=== PATIENT | female | born 1985 | race African-American/Black ===

== ENCOUNTER 2016-03-15 23:12 | Emergency (ER) | payer MEDICAID, OTHER ==
[~2016-03-15] VITALS: Ht 162.6 cm; Wt 87.1 kg
[~2016-03-15 23:12] MED LIST: AMOXICILLIN500 MG ORAL; BENTYL10 MG ORAL; CLOTRIMAZOLE15 GM TOPIC; IBUPROFEN600 MG ORAL; LACTULOSE20 GM/301 ORAL; NKM; NORCO 5-325 TA1 EACH ORAL; PREDNISONE20 MG ORAL; VICODIN 5-5001 EACH ORAL
[2016-03-15 23:30] VITALS: BP 113/69
[2016-03-15] MEDS ORDERED: Ketorolac 30mg Inj IV ONE (23:45)
[2016-03-16] LABS: BASOPHILS % (AUTO) 0.6 % (0.0-2.0); EOSINOPHILS % (AUTO) 1.7 % (0.0-3.0); LYMPHOCYTES % (AUTO) 22.1 % (20.0-45.0); MEAN CORPUSCULAR HEMOGLOBIN 24.7 PG (27.0-31.0); MEAN CORPUSCULAR HGB CONC 32.2 G/DL (32.0-36.0); MEAN CORPUSCULAR VOLUME 77 FL (80-99); MONOCYTES % (AUTO) 4.2 % (1.0-10.0); NEUTROPHILS % (AUTO) 71.4 % (45.0-75.0); PLATELET COUNT 344 K/UL (150-450); RED BLOOD COUNT 4.53 M/UL (4.20-5.40); RED CELL DISTRIBUTION WIDTH 16.2 % (11.6-14.8); WHITE BLOOD COUNT 7.1 K/UL (4.8-10.8)
[2016-03-16 00:02] LABS: APPEARANCE,URINE CLEAR; KETONES,URINE 1+ (NEGATIVE); LEUKOCYTE ESTERASE ,URINE 2+ (NEGATIVE); NITRITE,URINE POSITIVE (NEGATIVE); PH,URINE 6.5 (4.5-8.0); PROTEIN,URINE NEGATIVE (NEGATIVE); UROBILINOGEN,URINE NORMAL MG/DL (0.0-1.0)
[2016-03-16 00:13] LABS: BACTERIA,URINE MANY /HPF; RBC,URINE 0-2 /HPF (0 - 2); SQUAMOUS EPITHELIAL CELL,UR MANY /LPF (NONE/OCC); WBC,URINE 15-20 /HPF (0 - 2)
[2016-03-16 00:14] LABS: ALANINE AMINOTRANSFERASE 10 U/L (3-33); ALBUMIN/GLOBULIN RATIO 1.1 (1.0-2.7); ANION GAP 14 (5-15); ASPARTATE AMINO TRANSFERASE 17 U/L (5-40); CALCIUM 9.2 mg/dL (8.6-10.2); CARBON DIOXIDE 27 mEQ/L (20-30); CHLORIDE 97 mEQ/L (98-107); CREATININE 0.7 mg/dL (0.5-0.9); GLOMERULAR FILTRATION RATE > 60 mL/min (>60); HEMOLYSIS 17; LIPASE 15 U/L (< 60); POTASSIUM 3.9 mEQ/L (3.4-4.9); SODIUM 138 mEQ/L (135-145); TOTAL PROTEIN 7.3 g/dL (6.6-8.7)
[2016-03-16] MEDS ORDERED: cefTRIAXone 1 GM in NS 55 ML IVPB ONE (00:45)
[2016-03-16 01:30] VITALS: BP 112/68
[2016-03-16] MEDS ORDERED: HYDROCODON-ACE1 EA15 ORAL (01:53)
[2016-03-16] MEDS ORDERED: KEFLEX500 MG ORAL (01:53)
--- NOTE | 2016-03-16 01:53 | Emergency Room Report ---
History of Present Illness General Chief Complaint: Abdominal Pain Source: Patient Present Illness HPI Is a 30-year-old female with no significant past medical history. She does have a history of depression. She just had 2 teeth extracted yesterday. She was placed on Tylenol with Codeine and amoxicillin. After taking both medicine this morning she had some stomach upset and vomiting. Complaining of diffuse pain and burning sensation. Pain is 7/10. Nothing made it better. Nothing made it worse. Denies any dysuria frequency. Denies any hematuria. Allergies: Coded Allergies: No Known Allergies (Unverified , 04/15/12) Patient History Past Medical History: see triage record, old chart reviewed Past Surgical History: other Pertinent Family History: none Social History: Denies: smoking Last Menstrual Period: Mar Now: No Immunizations: other Reviewed Nursing Documentation: PMH: Agreed, PSxH: Agreed Nursing Documentation-PMH Hx Gastrointestinal Problems: Yes - gallstones Review of Systems Eye: Denies: blurred vision, eye pain ENT: Denies: ear pain, nose congestion, throat swelling Respiratory: Denies: cough, shortness of breath Cardiovascular: Denies: chest pain, palpitations Gastrointestinal: Reports: abdominal pain, nausea, vomiting, Denies: diarrhea Musculoskeletal: Denies: back pain, joint pain Skin: Denies: rash Neurological: Denies: headache, numbness Endocrine: Denies: increased thirst, increased urine Hematologic/Lymphatic: Denies: easy bruising All Other Systems: negative except mentioned in HPI Physical Exam Vital Signs Date Time Temp Pulse Resp B/P Pulse Ox O2 Delivery O2 Flow Rate FiO2 03/15/16 23:15 98.8 82 16 126/83 96 Room Air vitals normal Sp02 EP Interpretation: reviewed, normal General Appearance: well appearing, no apparent distress, alert Head: normocephalic, atraumatic Eyes: bilateral eye EOMI, bilateral eye PERRL ENT: hearing grossly normal, normal pharynx Neck: full range of motion, supple, no meningismus Respiratory: chest non-tender, lungs clear, normal breath sounds Cardiovascular #1: regular rate, rhythm, no murmur Gastrointestinal: normal bowel sounds, no mass, no organomegaly, no bruit, non- distended, tenderness - Diffusely Musculoskeletal: back normal, gait/station normal, normal range of motion Psychiatric: mood/affect normal Skin: warm/dry Medical Decision Making Diagnostic Impression: Primary Impression: Abdominal pain Qualified Codes: R10.84 - Generalized abdominal pain Additional Impressions: Medication adverse effect Qualified Codes: T88.7XXA - Unspecified adverse effect of drug or medicament, initial encounter UTI (urinary tract infection) Qualified Codes: N30.00 - Acute cystitis without hematuria ER Course Patient with abdominal pain and vomiting. Labs unremarkable. He scan negative. She may have a urinary tract infection. Antibiotics given here. We' ll discharge home. Lab Results Impression is negative CT/MRI/US Diagnostic Results CT/MRI/US Diagnostic Results : Imaging Test Ordered: CT abdomen and pelvis Impression negative per radiologist Last Vital Signs Date Time Temp Pulse Resp B/P Pulse Ox O2 Delivery O2 Flow Rate FiO2 03/15/16 23:15 98.8 82 16 126/83 96 Room Air Status: improved Disposition: HOME, SELF-CARE Condition: Stable Scripts Cephalexin* (KEFLEX*) 500 Mg Capsule 500 MG ORAL TID, #21 CAP 0 Refills Prov: PRIMO CAMACHO M.D. 03/16/16 Hydrocodone/Acetaminophen 5-325* (HYDROCODONE/ACETAMINOPHEN 5-325*) 1 Each Tablet 1 TAB ORAL Q6H Y for For Pain, #20 TAB 0 Refills Prov: PRIMO CAMACHO M.D. 03/16/16 Referrals: [facility],REFERRING (PCP) Patient Instructions: Abdominal Pain, Adult Additional Instructions: Stop the Tylenol No. 3 [address] amoxicillin. Followup your Dr. in 2-3 days. Return if symptom worsen. PRIMO CAMACHO M.D. Mar 16, 2016 01:53
[2016-03-16 02:21] VITALS: BP 112/68
[2016-03-16 03:05] VITALS: BP 112/68
--- NOTE | 2016-03-16 09:38 | Diagnostic Imaging Report ---
Clinical Indication: Abdominal pain Technique: No oral contrast utilized, per emergency room physician request IV administration nonionic contrast. Venous phase spiral acquisition obtained through the abdomen and pelvis. Multiplanar reconstructions were generated. Total dose length product 1031 mGycm. CTDIvol(s) 19 mGy Comparison: 07/24/2015 Findings: Normal appendix. Moderate retained stool. No evidence of diverticulosis or diverticulitis. No small bowel distention. There is trace free cul-de-sac fluid. No free or loculated intraperitoneal air or fluid is demonstrated otherwise. Distal esophagus, stomach, duodenum are unremarkable. The gallbladder contains gallstones. Liver demonstrates focal fatty change in the usual location adjacent to the falciform ligament. No biliary ductal dilatation. The pancreas, spleen, adrenals, kidneys are unremarkable. No retroperitoneal or mesenteric mass or adenopathy. There is a tampon present within the vagina. The uterus and adnexal structures are unremarkable. Previously demonstrated small right ovarian cyst is no longer evident. No pelvic mass or adenopathy. Numerous nodules are seen in the bilateral buttock subcutaneous fat. These appear less conspicuous than on the prior study. Impression: Cholelithiasis No acute process Nodules and stranding of the bilateral buttock subcutaneous fat. Correlate with any history of prior injections. Trace free cul-de-sac fluid, presumed physiologic This agrees with the preliminary interpretation provided overnight by [facility] teleradiology service. The CT scanner at [facility] is accredited by the [employer] and the scans are performed using protocols designed to limit radiation exposure to as low as reasonably achievable to attain images of sufficient resolution adequate for diagnostic evaluation.
== END 2016-03-16 02:00 | disposition home or self-care (01) ==
LOC: EMR 23:39
DX: R10.84 Generalized abdominal pain (principal); T88.7XXA Unspecified adverse effect of drug or medicament, initial encounter; X58.XXXA Exposure to other specified factors, initial encounter; Y93.9 Activity, unspecified; Y92.9 Unspecified place or not applicable; N30.00 Acute cystitis without hematuria; R11.2 Nausea with vomiting, unspecified; Z86.59 Personal history of other mental and behavioral disorders
CPT/HCPCS: 36415; 74177; 80053; 81003; 81025; 83690; 85025; 87086; 87181; 96374; 96375; 99284; J0696; J1885; J2405; Q9967

== ENCOUNTER 2016-04-24 08:31 | Emergency (ER) | payer OTHER ==
[~2016-04-24] VITALS: Ht 162.6 cm; Wt 86.6 kg
[~2016-04-24 08:31] MED LIST changes: +HYDROCODON-ACE1 EA15 ORAL; +KEFLEX500 MG ORAL
[2016-04-24] MEDS ORDERED: Morphine Sulfate 4mg/ml Inj IVP ONE (09:00)
[2016-04-24 09:37] LABS: BASOPHILS % (AUTO) 2.4 % (0.0-2.0); LYMPHOCYTES % (AUTO) 14.4 % (20.0-45.0); MEAN CORPUSCULAR HEMOGLOBIN 24.2 PG (27.0-31.0); MEAN CORPUSCULAR HGB CONC 31.5 G/DL (32.0-36.0); MEAN CORPUSCULAR VOLUME 77 FL (80-99); MONOCYTES % (AUTO) 6.6 % (1.0-10.0); NEUTROPHILS % (AUTO) 74.7 % (45.0-75.0); PLATELET COUNT 278 K/UL (150-450); RED BLOOD COUNT 4.77 M/UL (4.20-5.40); RED CELL DISTRIBUTION WIDTH 16.2 % (11.6-14.8); WHITE BLOOD COUNT 6.8 K/UL (4.8-10.8)
[2016-04-24 09:40] LABS: APPEARANCE,URINE CLEAR; KETONES,URINE NEGATIVE (NEGATIVE); LEUKOCYTE ESTERASE ,URINE NEGATIVE (NEGATIVE); NITRITE,URINE NEGATIVE (NEGATIVE); PH,URINE 6 (4.5-8.0); PROTEIN,URINE NEGATIVE (NEGATIVE); UROBILINOGEN,URINE NORMAL MG/DL (0.0-1.0)
--- NOTE | 2016-04-24 09:45 | Diagnostic Imaging Report ---
Indication: SOB, this may Technique: One view of the chest Comparison: On 01/24/13 Findings: Lungs and pleural spaces are clear. Heart size is normal . No significant change Impression: No acute process
[2016-04-24 09:48] LABS: ALANINE AMINOTRANSFERASE 8 U/L (3-33); ANION GAP 13 (5-15); ASPARTATE AMINO TRANSFERASE 14 U/L (5-40); CALCIUM 8.9 mg/dL (8.6-10.2); CARBON DIOXIDE 25 mEQ/L (20-30); CHLORIDE 100 mEQ/L (98-107); CREATININE 0.7 mg/dL (0.5-0.9); GLOMERULAR FILTRATION RATE > 60 mL/min (>60); HEMOLYSIS 2; LIPASE 19 U/L (< 60); POTASSIUM 3.8 mEQ/L (3.4-4.9); SODIUM 138 mEQ/L (135-145); TOTAL PROTEIN 6.8 g/dL (6.6-8.7)
[2016-04-24 09:58] LABS: TROPONIN I < 0.30 ng/mL (<=0.30)
[2016-04-24 10:26] VITALS: BP 98/62
[2016-04-24 11:37] VITALS: BP 104/53
[2016-04-24 12:19] VITALS: BP 106/64
--- NOTE | 2016-04-24 12:27 | Diagnostic Imaging Report ---
Indication: Epigastric pain, abnormal renal function tests Technique: Crawford-scale and duplex images of the upper abdomen were obtained Comparison: 03/15/2016 CT scan Findings: . Gallbladder demonstrates gallstones. Sonographic Wright's sign could not be assessed as patient recently had pain medication. Common bile duct measures 4 mm in diameter. No intrahepatic biliary ductal dilatation. Liver demonstrate an ill-defined questionable focus of increased echogenicity in the anterior left hepatic lobe. This corresponds to an area of low attenuation described on prior CT scan, and most likely represents an area of focal fatty infiltration. Portal vein and hepatic veins are patent.. Pancreas is unremarkable. Spleen is unremarkable. Left kidney measures 9.5 cm in length. Right kidney measures 9.9 cm length. Both kidneys demonstrate normal echogenicity. There is no hydronephrosis. No focal abnormality. . Non-aneurysmal abdominal aorta. No free intraperitoneal fluid Impression: Cholelithiasis, also previously described Echogenic area within the liver, appearance on prior CT scan is consistent with area of focal fatty infiltration, location typical Negative for dilated ducts or other significant abnormality
[2016-04-24 12:56] VITALS: BP 97/62
[2016-04-24] MEDS ORDERED: BENTYL10 MG ORAL (13:34)
[2016-04-24] MEDS ORDERED: PEPCID20 MG ORAL (13:34)
[2016-04-24 13:50] VITALS: BP_SYST 114; BP_SYST 97; BP_DIAS 62; BP_DIAS 80
--- NOTE | 2016-04-25 11:25 | Cardiology Report ---
APPROVED REPORT EKG Measurement Heart [id number] Sinus bradycardia with premature atrial complexes Cannot rule out Anterior infarct, age undetermined Abnormal ECG t wave uinversion cannot exclude ischemia
--- NOTE | 2016-04-27 08:13 | Emergency Room Report ---
History of Present Illness General Chief Complaint: Pain Source: Patient Present Illness HPI Patient is a 30-year-old female brought in by family member after increased epigastric pain and low back pain. At the gradual onset of symptoms. Patient was noted to have increased nausea as well as mid epigastric pain. Patient prior history of gallstones. Patient reported having no fever. She had intermittent pain. Pain was worse with food. Patient had pain onset several hours prior to arrival. Allergies: Coded Allergies: No Known Allergies (Unverified , 04/15/12) Patient History Last Menstrual Period: 3-6 Now: No Reviewed Nursing Documentation: PMH: Agreed, PSxH: Agreed Nursing Documentation-PMH Past Medical History: No History, Except For Hx Gastrointestinal Problems: Yes - gallstones Review of Systems All Other Systems: negative except mentioned in HPI Physical Exam Vital Signs Date Time Temp Pulse Resp B/P Pulse Ox O2 Delivery O2 Flow Rate FiO2 04/24/16 08:41 98.4 71 18 101/62 98 Room Air Sp02 EP Interpretation: reviewed, normal General Appearance: normal inspection, well appearing, no apparent distress, alert, GCS 15 Head: atraumatic ENT: normal ENT inspection, hearing grossly normal, normal voice Neck: normal inspection, full range of motion, supple, no bony tend Respiratory: normal inspection, lungs clear, normal breath sounds, no respiratory distress, no retraction, no wheezing Cardiovascular #1: regular rate, rhythm, no edema Gastrointestinal: normal inspection, normal bowel sounds, non tender, soft, no guarding, no hernia Genitourinary: no CVA tenderness Musculoskeletal: normal inspection, back normal, normal range of motion Neurologic: normal inspection, alert, oriented x3, responsive, high school [employer] III-XII nml as tested, speech normal Psychiatric: normal inspection, judgement/insight normal, mood/affect normal Skin: normal inspection, normal color, no rash Medical Decision Making Diagnostic Impression: Primary Impression: Biliary colic ER Course Patient presented for abdominal pain. Differential diagnoses included ischemic bowel, appendicitis, perforated viscus, abdominal aortic aneurysm, inferior myocardial infarction, viral gastroenteritis Because of complexity of patient's case laboratory testing and imaging studies were ordered. Abdominal ultrasound radiology showed multiple gallbladder stones without evident gallbladder thickening.The patient was noted to have improvement after pain medications. Patient was advised to seek outpatient general surgery appointment. Patient is advised to return or she began having persistent vomiting increased pain high fevers or other concerns. Labs Test 04/24/16 09:10 White Blood Count 6.8 K/UL (4.8-10.8) Red Blood Count 4.77 M/UL (4.20-5.40) Hemoglobin 11.6 G/DL (12.0-16.0) Hematocrit 36.7 % (37.0-47.0) Mean Corpuscular Volume 77 FL (80-99) Mean Corpuscular Hemoglobin 24.2 PG (27.0-31.0) Mean Corpuscular Hemoglobin Concent 31.5 G/DL (32.0-36.0) Red Cell Distribution Width 16.2 % (11.6-14.8) Platelet Count 278 K/UL (150-450) Mean Platelet Volume 8.0 FL (6.5-10.1) Neutrophils (%) (Auto) 74.7 % (45.0-75.0) Lymphocytes (%) (Auto) 14.4 % (20.0-45.0) Monocytes (%) (Auto) 6.6 % (1.0-10.0) Eosinophils (%) (Auto) 2.0 % (0.0-3.0) Basophils (%) (Auto) 2.4 % (0.0-2.0) Urine Color Pale yellow Urine Appearance Clear Urine pH 6 (4.5-8.0) Urine Specific [place] 1.010 (1.005-1.035) Urine Protein Negative (NEGATIVE) Urine Glucose (UA) Negative (NEGATIVE) Urine Ketones Negative (NEGATIVE) Urine Occult Blood Negative (NEGATIVE) Urine Nitrite Negative (NEGATIVE) Urine Bilirubin Negative (NEGATIVE) Urine Urobilinogen Normal MG/DL (0.0-1.0) Urine Leukocyte Esterase Negative (NEGATIVE) Urine HCG, Qualitative Negative Sodium Level 138 mEQ/L (135-145) Potassium Level 3.8 mEQ/L (3.4-4.9) Chloride Level 100 mEQ/L (98-107) Carbon Dioxide Level 25 mEQ/L (20-30) Anion Gap 13 (5-15) Blood Urea Nitrogen 6 mg/dL (7-23) Creatinine 0.7 mg/dL (0.5-0.9) Estimat Glomerular Filtration Rate > 60 mL/min (>60) Glucose Level 94 mg/dL (74-106) Calcium Level 8.9 mg/dL (8.6-10.2) Total Bilirubin < 0.2 mg/dL (0.0-1.2) Aspartate Amino Transf (AST/SGOT) 14 U/L (5-40) Alanine Aminotransferase (ALT/SGPT) 8 U/L (3-33) Alkaline Phosphatase 70 U/L (35-104) Troponin I < 0.30 ng/mL (<=0.30) Total Protein 6.8 g/dL (6.6-8.7) Albumin 3.4 g/dL (3.5-5.2) Globulin 3.4 g/dL Albumin/Globulin Ratio 1.0 (1.0-2.7) Lipase 19 U/L (< 60) EKG Diagnostic Results Rate: normal Rhythm: NSR ST Segments: no acute changes Rhythm Strip Diag. Results EP Interpretation: yes Rhythm: NSR, no PVC's, no ectopy Last Vital Signs Date Time Temp Pulse Resp B/P Pulse Ox O2 Delivery O2 Flow Rate FiO2 04/24/16 13:50 98.5 71 12 97/62 100 Room Air Status: improved Disposition: HOME, SELF-CARE Condition: Stable Scripts Famotidine (PEPCID) 20 Mg Tablet 20 MG ORAL BEDTIME, #7 TAB 0 Refills Prov: Gene Welch 04/24/16 Dicyclomine Hcl* (BENTYL*) 10 Mg Capsule 10 MG ORAL FOUR TIMES A DAY, #20 CAP Prov: Gene Welch 04/24/16 Patient Instructions: Biliary Colic Gene Welch Apr 27, 2016 08:13
== END 2016-04-24 13:50 | disposition home or self-care (01) ==
LOC: EMR 08:54
DX: K80.50 Calculus of bile duct without cholangitis or cholecystitis without obstruction (principal); M54.5 Low back pain; R11.0 Nausea
CPT/HCPCS: 36415; 71010; 76700; 80053; 81003; 81025; 83690; 84484; 85025; 93005; 96360; 96361; 96374; 96375; 99284; J2270; J2405

== ENCOUNTER 2017-03-07 14:43 | Emergency (ER) | payer OTHER ==
[~2017-03-07] VITALS: Ht 162.6 cm; Wt 85.7 kg
[~2017-03-07 14:43] MED LIST changes: +PEPCID20 MG ORAL
[2017-03-07] MEDS ORDERED: Sodium Chloride 500ML 500 ML IV ONE (15:00)
[2017-03-07] MEDS ORDERED: Ketorolac 30mg Inj IV ONE (15:00)
[2017-03-07 15:20] VITALS: BP 110/76
[2017-03-07 15:39] LABS: APPEARANCE,URINE CLEAR; BILIRUBIN, URINE NEGATIVE (NEGATIVE); COLOR,URINE PALE YELLOW; GLUCOSE, URINE (UA) NEGATIVE (NEGATIVE); KETONES,URINE NEGATIVE (NEGATIVE); LEUKOCYTE ESTERASE ,URINE NEGATIVE (NEGATIVE); NITRITE,URINE NEGATIVE (NEGATIVE); PH,URINE 7 (4.5-8.0); PROTEIN,URINE NEGATIVE (NEGATIVE); UROBILINOGEN,URINE NORMAL MG/DL (0.0-1.0)
[2017-03-07] MEDS ORDERED: Excedrin Migraine tab ORAL ONE (16:45)
--- NOTE | 2017-03-07 16:58 | Emergency Room Report ---
History of Present Illness General Chief Complaint: Headache Source: Patient Present Illness HPI 31-year-old female presents to the emergency department complaining of 10 out of 10 in severity right-sided pulsatile headache that was progressive in nature and intermittent x3 weeks. Patient reports she is has a history of migraines and as noted increase in frequency over the course of the last 3 weeks. Patient denies changes in character of today's headache compared with previously experienced migraines however patient reports that her usual home remedies are not working. Patient reports that she has increased her fluid intake and tried multiple medications such as Aleve, and Motrin. Denies return of the headache same time daily, lacrimation or rhinorrhea associated with the headache. . She denies neck pain/stiffness, fevers, chills, nausea or vomiting, dysuria, hematuria or frequency. Patient denies photophobia or auditory symptoms. Patient denies recent head trauma or fall. She reports also over the course of the last week she has noted tightness and pain in the muscles between her shoulder blades that is exacerbated when she moves. Denies mid line neck pain. Denies numbness tingling or loss of sensation or gross motor movements of the extremities, incontinence of bowel or bladder. Denies CP, Palpitations, LOC, AMS, dizziness, Changes in Vision, Sensation, paresthesias, or a sudden severe headache. Allergies: Coded Allergies: No Known Allergies (Unverified , 04/15/12) Patient History Past Medical History: see triage record Past Surgical History: none Pertinent Family History: none Last Menstrual Period: now Now: No Reviewed Nursing Documentation: PMH: Agreed, PSxH: Agreed Nursing Documentation-PMH Past Medical History: No History, Except For Hx Gastrointestinal Problems: Yes - gallstones Review of Systems All Other Systems: negative except mentioned in HPI Physical Exam Vital Signs Date Time Temp Pulse Resp B/P (MAP) Pulse Ox O2 Delivery O2 Flow Rate FiO2 03/07/17 14:47 98.4 75 18 107/78 98 Room Air Sp02 EP Interpretation: reviewed, normal General Appearance: well appearing, alert, GCS 15, non-toxic, mild distress Head: normocephalic, atraumatic Eyes: bilateral eye normal inspection, bilateral eye PERRL, bilateral eye other - no photophobia ENT: hearing grossly normal, normal voice Neck: full range of motion, no meningismus, no bony tend Respiratory: lungs clear, normal breath sounds, speaking full sentences Cardiovascular #1: regular rate, rhythm Musculoskeletal: back normal, gait/station normal, normal range of motion, tender - mild TTP to paraspinal muscles of the thoracic spine mainly on the left side, no midline spinal TTP. Neurologic: alert, oriented x3, responsive, motor strength/tone normal, sensory intact, normal gait, speech normal, no pronator, grossly normal Psychiatric: judgement/insight normal Skin: normal color, no rash, warm/dry, well hydrated Medical Decision Making PA Attestation Dr. Wolff is my supervising Physician whom patient management has been discussed with. Diagnostic Impression: Primary Impression: Headache Qualified Codes: R51 - Headache Additional Impression: Upper back pain ER Course 31-year-old female presents to the emergency department complaining of 10 out of 10 in severity right-sided pulsatile headache that was progressive in nature and intermittent x3 weeks. Patient reports she is has a history of migraines and as noted increase in frequency over the course of the last 3 weeks. Patient denies changes in character of today's headache compared with previously experienced migraines however patient reports that her usual home remedies are not working. Patient reports that she has increased her fluid intake and tried multiple medications such as Aleve, and Motrin. Denies return of the headache same time daily, lacrimation or rhinorrhea associated with the headache. . She denies neck pain/stiffness, fevers, chills, nausea or vomiting, dysuria, hematuria or frequency. Patient denies photophobia or auditory symptoms. Patient denies recent head trauma or fall. She reports also over the course of the last week she has noted tightness and pain in the muscles between her shoulder blades that is exacerbated when she moves. Denies mid line neck pain. Denies numbness tingling or loss of sensation or gross motor movements of the extremities, incontinence of bowel or bladder. Denies CP, Palpitations, LOC, AMS, dizziness, Changes in Vision, Sensation, paresthesias, or a sudden severe headache. Ddx considered but are not limited to migraine, SAH, Psedudo motor Cerebri, Mass lesion, Cluster LAMAR, Tension LAMAR, Post lumbar puncture LAMAR. Vital signs: are WNL, pt. is afebrile H&PE are most consistent with increased headache frequency ORDERS: -UA: Unremarkable -Urine Hcg: negative. ED INTERVENTIONS: - 1 Liter NS - Compazine IV -Toradol IV - Excedrin Migraine PO -Discussed with patient that she needs to followup with her primary care provider/neurologist regarding increased frequency of headaches. DISCHARGE: At this time pt. is stable for d/c to home. Will provide printed patient care instructions, and any necessary prescriptions. Care plan and follow up instructions have been discussed with the patient prior to discharge. Labs Test 03/07/17 14:51 Urine Color Pale yellow Urine Appearance Clear Urine pH 7 (4.5-8.0) Urine Specific [place] 1.010 (1.005-1.035) Urine Protein Negative (NEGATIVE) Urine Glucose (UA) Negative (NEGATIVE) Urine Ketones Negative (NEGATIVE) Urine Occult Blood 2+ (NEGATIVE) Urine Nitrite Negative (NEGATIVE) Urine Bilirubin Negative (NEGATIVE) Urine Urobilinogen Normal MG/DL (0.0-1.0) Urine Leukocyte Esterase Negative (NEGATIVE) Urine RBC 2-4 /HPF (0 - 2) Urine WBC 0-2 /HPF (0 - 2) Urine Squamous Epithelial Cells Few /LPF (NONE/OCC) Urine Bacteria Few /HPF (NONE) Urine HCG, Qualitative Negative Last Vital Signs Date Time Temp Pulse Resp B/P (MAP) Pulse Ox O2 Delivery O2 Flow Rate FiO2 03/07/17 15:20 94 18 110/76 100 Room Air 03/07/17 14:47 98.4 Disposition: HOME, SELF-CARE Condition: Stable Scripts Methocarbamol* (ROBAXIN-750*) 750 Mg Tablet 750 MG PO QID for 7 Days, #28 TAB 0 Refills Prov: Jerilyn Maldonado 03/07/17 Aspirin/Acetaminophen/Caffeine (EXCEDRIN MIGRAINE GELTAB) 1 Each Tablet 1 EACH PO Q6HR, #20 TAB Prov: Jerilyn Maldonado 03/07/17 Referrals: [facility],REFERRING (PCP) Departure Forms: Return to Work Return to Work Date: Mar 11, 2017 Return to Full Activity: Mar 11, 2017 Patient Instructions: Migraine Headache, Tension Headache Additional Instructions: Dr. Wolff is my supervising Physician whom patient management has been discussed with. Jerilyn Maldonado Mar 07, 2017 16:57
[2017-03-07] MEDS ORDERED: EXCEDRIN MIGRA1 EACH PO (16:59)
[2017-03-07] MEDS ORDERED: ROBAXIN-750750 MG PO (16:59)
[2017-03-07 17:14] VITALS: BP 123/82
== END 2017-03-07 17:14 | disposition home or self-care (01) ==
LOC: EMR 15:10
DX: R51 Headache (principal); M54.6 Pain in thoracic spine
CPT/HCPCS: 81003; 81025; 96361; 96374; 96375; 99284; J0780; J1885; J7040

== ENCOUNTER 2017-10-26 17:33 | Emergency (ER) | payer OTHER ==
[~2017-10-26] VITALS: Ht 162.6 cm; Wt 86.2 kg
[~2017-10-26 17:33] MED LIST changes: +EXCEDRIN MIGRA1 EACH PO; +ROBAXIN-750750 MG PO
[2017-10-26] MEDS ORDERED: traMADol 50mg tab ORAL ONE (18:00)
[2017-10-26 18:30] VITALS: BP 104/66
--- NOTE | 2017-10-26 18:45 | Diagnostic Imaging Report ---
EXAM: CT Lumbar Spine Without Intravenous Contrast CLINICAL HISTORY: PAIN TECHNIQUE: Axial computed tomography images of the lumbar spine without intravenous contrast. CTDI is 19.63 mGy and DLP is 621 mGy-cm. One or more of the following dose reduction techniques were used: automated exposure control, adjustment of the mA and/or kV according to patient size, use of iterative reconstruction technique. COMPARISON: CT abdomen and pelvis 03/16/2016 FINDINGS: Vertebrae: Unremarkable. No acute fracture. Discs/spinal canal/neural foramina: No acute findings. No spinal canal stenosis. Soft tissues: Unremarkable. IMPRESSION: 1. No acute abnormality. 2. Normal study.
[2017-10-26] MEDS ORDERED: Ketorolac 60mg Inj IM ONE (19:00)
--- NOTE | 2017-10-26 19:05 | Emergency Room Report ---
History of Present Illness General Chief Complaint: Back Pain-No Injury Source: Patient Present Illness HPI 32-year-old female presents to the emergency department complaining of acute sudden onset of midline lower back pain upon attempting to stand up from a sitting position on the ground. Patient denies previous injury to her back or history of back pain. Patient denies notable trauma or fall. Patient reports that the pain is been constant and has not gone away. She describes some mild radiation outward on the left side but for the most part localizes her pain midline. Denies fevers, chills, recent spinal procedures or history of cancer. Patient reports pain is exacerbated with attempts to stand and ambulate. Denies paresthesias, urinary incontinence or urinary retention. Allergies: Coded Allergies: No Known Allergies (Unverified , 04/15/12) Patient History Past Medical History: see triage record Past Surgical History: none Pertinent Family History: none Last Menstrual Period: last month Now: No Reviewed Nursing Documentation: PMH: Agreed; PSxH: Agreed Nursing Documentation-PMH Past Medical History: No History, Except For Hx Gastrointestinal Problems: Yes - gallstones Review of Systems All Other Systems: negative except mentioned in HPI Physical Exam Vital Signs Date Time Temp Pulse Resp B/P (MAP) Pulse Ox O2 Delivery O2 Flow Rate FiO2 10/26/17 17:37 98.0 91 18 104/66 98 Room Air 98.1 Sp02 EP Interpretation: reviewed, normal General Appearance: no apparent distress, alert, GCS 15, non-toxic Head: normocephalic, atraumatic Eyes: bilateral eye normal inspection, bilateral eye PERRL ENT: hearing grossly normal, normal voice Neck: full range of motion Respiratory: lungs clear, normal breath sounds, speaking full sentences Cardiovascular #1: regular rate, rhythm Gastrointestinal: non tender, soft Rectal: deferred Genitourinary: normal inspection, no CVA tenderness Musculoskeletal: back normal, gait/station normal, normal range of motion, tender - TTP to the Midline of lumbosacral spine with mild left sided paraspinal ttp. limited ROM. Neurologic: alert, oriented x3, responsive, motor strength/tone normal, sensory intact, speech normal, grossly normal Psychiatric: judgement/insight normal Skin: normal color, no rash, warm/dry, well hydrated Medical Decision Making PA Attestation Dr. fitzgerald is my supervising Physician whom patient management has been discussed with. Diagnostic Impression: Primary Impression: Lumbago with sciatica, left side Qualified Codes: M54.42 - Lumbago with sciatica, left side ER Course 32-year-old female presents to the emergency department complaining of acute sudden onset of midline lower back pain upon attempting to stand up from a sitting position on the ground. Patient denies previous injury to her back or history of back pain. Patient denies notable trauma or fall. Patient reports that the pain is been constant and has not gone away. She describes some mild radiation outward on the left side but for the most part localizes her pain midline. Denies fevers, chills, recent spinal procedures or history of cancer. Patient reports pain is exacerbated with attempts to stand and ambulate. Denies paresthesias, urinary incontinence or urinary retention. Ddx considered: epidural abscess, fracture, sprain/strain, meningitis, spinal chord injury, sciatica, cauda equina, Pyelonephritis, renal calculi just to name a few. Vital signs reviewed and are WNL during ED visit. Pt. is afebrile with no signs of infection No new symptoms, and denies recent trauma. No saddle anesthesia noted, Pt. denies incontinence Neurovascular is intact ROM is limited due to pain * mild Tenderness to palpation to paraspinal muscles of the lower back with severe midline tenderness. *Pt. describes pain today as moderate and radiates across the lower back. ORDERS: none warranted at this time. INTERVENTIONS: -Soma PO - 20mg IM Toradol -Tramadol PO D/W Pt. that for further pain management is it recommended to consult PCP for close follow up. -was given a copy of her CT report. DISCHARGE: At this time pt. is stable for d/c to home. Will provide printed patient care instructions, and any necessary prescriptions. Care plan and follow up instructions have been discussed with the patient prior to discharge. CT/MRI/US Diagnostic Results CT/MRI/US Diagnostic Results : Imaging Test Ordered: CT - L- Spine no contrast Impression "No acute abnormalities, normal study." Per official radiology report- Please see report for specific details. Last Vital Signs Date Time Temp Pulse Resp B/P (MAP) Pulse Ox O2 Delivery O2 Flow Rate FiO2 10/26/17 18:32 98.3 10/26/17 18:30 79 18 104/66 98 Room Air Disposition: HOME, SELF-CARE Condition: Stable Scripts Methocarbamol* (ROBAXIN*) 500 Mg Tablet 1000 MG PO TID, #42 TAB 0 Refills Prov: Jerilyn Maldonado 10/26/17 Referrals: [facility],REFERRING (PCP) Patient Instructions: Back Pain, Adult, Sciatica Additional Instructions: Take medications as directed. Follow up with a Primary Care Provider in 3-5 days, even if your symptoms have resolved. --Please review list of primary care clinics, if you do not already have a primary care provider Return sooner to ED if new symptoms occur, or current symptoms become worse. Do not drink alcohol, drive, or operate heavy machinery while taking Robaxin ( Muscle Relaxers) as this may cause drowsiness. - Please note that this Emergency Department Report was dictated using [employer]bridge tender technology software, occasionally this can lead to erroneous entry secondary to interpretation by the dictation equipment. Jerilyn Maldonado Oct 26, 2017 19:05
[2017-10-26] MEDS ORDERED: ROBAXIN500 MG PO ×2 (19:06→19:07)
[2017-10-26 19:25] VITALS: BP 104/66
== END 2017-10-26 19:21 | disposition home or self-care (01) ==
LOC: EMR 18:27
DX: M54.42 Lumbago with sciatica, left side (principal)
CPT/HCPCS: 72131; 96372; 99284